=== PATIENT | female | born 1940 | race Caucasian/White ===

== ENCOUNTER 2018-05-02 15:49 | Emergency (ER) | payer OTHER ==
[~2018-05-02] VITALS: Ht 157.5 cm; Wt 85.3 kg
[2018-05-02] MEDS ORDERED: LISINOPRIL10 MG (16:47)
[2018-05-02] MEDS ORDERED: ADULT ASPIRIN81 MG (16:48)
[2018-05-02] MEDS ORDERED: SILVASTATIN (16:48)
== END 2018-05-02 20:21 | disposition home or self-care (01) ==
LOC: ER 15:49
DX: B34.9 Viral infection, unspecified (principal); J11.1 Influenza due to unidentified influenza virus with other respiratory manifestations